=== PATIENT | male | born 1995 | race Asian ===

== ENCOUNTER 2017-10-01 10:30 | Emergency (ER) | payer OTHER | END 2017-10-01 11:31 | disposition home or self-care (01) | LOC: M ED 10:30 | DX: L25.5 Unspecified contact dermatitis due to plants, except food (principal) | CPT/HCPCS: 99282 ==

== ENCOUNTER 2017-12-04 13:28 | Emergency (ER) | payer OTHER | END 2017-12-04 13:53 | disposition home or self-care (01) | LOC: M ED 13:28 | DX: B00.1 Herpesviral vesicular dermatitis (principal) | CPT/HCPCS: 99282 ==

== ENCOUNTER → 2018-10-01 | Outpatient (CLI) | payer OTHER ==
[~2018-10-01] MED LIST: ACYC1CAP20 PO; PRED20TA PO; VALA1TAB64 PO
[2018-10-01 18:41] LABS: BASO % 0.4 % (0.0-1.0); EOS # 0.3 10^3/uL (0.0-0.50); EOS % 6.4 % (0.0-3.0); HEMATOCRIT 47.4 % (42.0-52.0); HEMOGLOBIN 16.7 g/dl (13.5-17.5); LYMPH # 1.9 10^3/uL (1.5-6.5); LYMPH % 39.7 % (24.0-44.0); MEAN CORPUSCULAR HEMOGLOBIN 30.8 pg (27.0-33.0); MEAN CORPUSCULAR HGB CONC 35.2 g/dl (32.0-36.5); MEAN CORPUSCULAR VOLUME 87.5 fl (80.0-96.0); MONO # 0.4 10^3/uL (0.0-0.8); MONO % 7.5 % (0.0-5.0); NEUTROPHILS # 2.1 10^3/uL (1.8-7.7); PLATELET COUNT, AUTOMATED 270 10^3/uL (150-450); RED BLOOD COUNT 5.42 10^6/uL (4.30-6.10); WHITE BLOOD COUNT 4.7 10^3/uL (4.0-10.0)
[2018-10-01 18:46] LABS: MONO REFLEX EBV COMP NEGATIVE (NEGATIVE)
[2018-10-01 18:55] LABS: ALT/SGPT 22 U/L (12-78); BILIRUBIN,TOTAL 0.7 MG/DL (0.2-1.0); BLOOD UREA NITROGEN 12 MG/DL (7-18); CALCIUM LEVEL 9.1 MG/DL (8.5-10.1); CARBON DIOXIDE LEVEL 30 MEQ/L (21-32); CHLORIDE LEVEL 107 MEQ/L (98-107); CREATININE FOR GFR 0.91 MG/DL (0.70-1.30); FREE T4 0.97 NG/DL (0.76-1.46); GLOMERULAR FILTRATION RATE > 60.0 (>60); GLUCOSE, FASTING 86 MG/DL (70-100); POTASSIUM SERUM 4.5 MEQ/L (3.5-5.1); SODIUM LEVEL 141 MEQ/L (136-145)
[2018-10-04 00:09] LABS: EBV AB TO NUCLEAR ANTIGEN >600.0 U/mL (0.0-17.9); EBV VIRAL CAPSID AG IgM <36.0 U/mL (0.0-35.9); Lyme Disease IgG/IgM Antibodie <0.91 ISR (0.00-0.90); Lyme Disease IgM Ab Quantitati <0.80 index (0.00-0.79)
== END ==
LOC: M LRY 11:24
PROVIDERS: ATTEND Physician Assistant Medical
DX: R51 Headache (principal); R11.0 Nausea

== ENCOUNTER 2019-10-20 13:37 | Emergency (ER) | payer OTHER ==
[~2019-10-20] VITALS: Ht 170.2 cm; Wt 83.5 kg
[~2019-10-20 13:37] MED LIST changes: +VALA1TAB5 PO; -VALA1TAB64 PO
[2019-10-20] MEDS ORDERED: TIZA4TAB4 (13:44)
[2019-10-20] MEDS ORDERED: NS 1,000 ML IV ONE (14:30)
[2019-10-20 15:06] LABS: BASO % 0.2 % (0.0-1.0); EOS # 0.1 10^3/uL (0.0-0.5); EOS % 1.5 % (0.0-3.0); HEMATOCRIT 46.6 % (42.0-52.0); HEMOGLOBIN 16.2 g/dl (13.5-17.5); LYMPH # 1.9 10^3/uL (1.5-5.0); LYMPH % 40.6 % (24.0-44.0); MEAN CORPUSCULAR HEMOGLOBIN 30.6 pg (27.0-33.0); MEAN CORPUSCULAR HGB CONC 34.8 g/dl (32.0-36.5); MEAN CORPUSCULAR VOLUME 88.1 fl (80.0-96.0); MONO # 0.3 10^3/uL (0.0-0.8); MONO % 7.3 % (0.0-5.0); NEUTROPHILS # 2.3 10^3/uL (1.5-8.5); PLATELET COUNT, AUTOMATED 238 10^3/uL (150-450); RED BLOOD COUNT 5.29 10^6/uL (4.30-6.10); WHITE BLOOD COUNT 4.7 10^3/uL (4.0-10.0)
[2019-10-20 15:23] LABS: ALBUMIN 3.9 GM/DL (3.2-5.2); ALT/SGPT 22 U/L (12-78); BILIRUBIN,TOTAL 0.6 MG/DL (0.2-1.0); BLOOD UREA NITROGEN 12 MG/DL (7-18); CARBON DIOXIDE LEVEL 30 MEQ/L (21-32); CHLORIDE LEVEL 105 MEQ/L (98-107); CK-MB VALUE MASS < 1.0 NG/ML (<3.6); CPK CREATINE PHOSPHOKINASE 137 U/L (39-308); CREATININE FOR GFR 0.84 MG/DL (0.70-1.30); GLOMERULAR FILTRATION RATE > 60.0 (>60); GLUCOSE, FASTING 90 MG/DL (70-100); MB/CK RELATIVE INDEX 0.73 (< OR =4); POTASSIUM SERUM 4.2 MEQ/L (3.5-5.1); SODIUM LEVEL 140 MEQ/L (136-145); TOTAL PROTEIN 7.8 GM/DL (6.4-8.2); TROPONIN I < 0.02 NG/ML (< 0.10)
[2019-10-20 16:07] LABS: APPEARANCE, URINE CLEAR (CLEAR); BACTERIA, URINE AUTO NEGATIVE (NEGATIVE); BILIRUBIN, URINE AUTO NEGATIVE (NEGATIVE); BLOOD, URINE BLOOD NEGATIVE (NEGATIVE); COLOR, URINE STRAW (YELLOW); GLUCOSE, URINE (UA) AUTO NEGATIVE (NEGATIVE); KETONE, URINE AUTO NEGATIVE (NEGATIVE); LEUKOCYTE ESTERASE, URINE AUTO NEGATIVE (NEGATIVE); NITRITE, URINE AUTO NEGATIVE (NEGATIVE); PROTEIN, URINE AUTO NEGATIVE (NEGATIVE); RBC, URINE AUTO 0 /HPF (0-3); SQUAMOUS EPITHELIAL CELL UR AU 0 /HPF (0-6); UROBILINOGEN, URINE AUTO 0.2 mg/dL (0.0-2.0); WBC, URINE AUTO 0 /HPF (0-3)
[2019-10-20 16:36] LABS: AMPHETAMINES LEVEL URINE NEGATIVE (NEGATIVE); BARBITURATES URINE NEGATIVE (NEGATIVE); BENZODIAZEPINES URINE NEGATIVE (NEGATIVE); CANNABINOIDS URINE NEGATIVE (NEGATIVE); COCAINE METABOLITE URINE NEGATIVE (NEGATIVE); METHADONE URINE NEGATIVE (NEGATIVE); OPIATES URINE NEGATIVE (NEGATIVE); PHENCYCLIDINE URINE NEGATIVE (NEGATIVE)
[2019-10-20 16:45] VITALS: BP 143/85
--- NOTE | 2019-11-06 10:38 | ECGEPIP ---
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
== END 2019-10-20 16:46 | disposition home or self-care (01) ==
LOC: M ED 13:37
DX: R42 Dizziness and giddiness (principal); R53.83 Other fatigue; G43.909 Migraine, unspecified, not intractable, without status migrainosus

== ENCOUNTER 2020-01-21 20:05 | Emergency (ER) | payer OTHER ==
[~2020-01-21] VITALS: Ht 172.7 cm; Wt 86.9 kg
[~2020-01-21 20:05] MED LIST changes: +TIZA4TAB4
[2020-01-21 22:02] LABS: INFLUENZA A AMPLIFICATION NEGATIVE (NEGATIVE); INFLUENZA B AMPLIFICATION NEGATIVE (NEGATIVE)
[2020-01-21 22:45] VITALS: BP 145/75
== END 2020-01-21 22:56 | disposition home or self-care (01) ==
LOC: EEVIPCON 20:05 → M ED 20:05
DX: B34.2 Coronavirus infection, unspecified (principal)

== ENCOUNTER → 2020-03-21 | Outpatient (REF) | payer OTHER ==
[2020-03-21 12:35] LABS: SEMEN APPEARANCE OPAQUE (OPAQUE); SEMEN VISCOSITY LIQUID (LIQUID); SEMEN pH 7.5 (7.0-8.0); SPERM CONCENTRATION 40.1 M/ml (>=15.0); WBC CONCENTRATION <=1 M/ml (<=1 M/ml)
== END ==
LOC: M LAB REF 12:12
PROVIDERS: ATTEND Specialist
DX: N50.811 Right testicular pain (principal); I86.1 Scrotal varices

== ENCOUNTER → 2020-05-12 | Outpatient (CLI) | payer OTHER ==
--- NOTE | 2020-05-12 09:20 | PFTRPT ---
Height: 69.00 Inches Weight: 185.00 Lbs BSA: 2.00 Diagnosis: SOB DATE: 05/12/2020 ORDERED BY: Dewayne Raphael M.D. Pre and post bronchodilator studies have excellent technical quality. Forced vital capacity is normal. FEV1 is borderline in proportion. Obstructive index is therefore borderline as well. Expiratory limit of the flow-volume loop does suggest some degree of limitation. Favorable bronchodilator response is identified. Total lung capacity is mildly elevated. Residual volume is in proportion. Diffusing capacity is normal. No hemoglobin available for correction. Airway resistance and conductance are normal. IMPRESSION: Mild reversible obstructive ventilatory defect. Please correlate clinically. MTDD
== END ==
LOC: M CARPUL 08:40
DX: R06.02 Shortness of breath (principal)